=== PATIENT | male | born 1960 | race Caucasian/White ===

== ENCOUNTER → 2019-08-16 07:45 | Outpatient (CLI) | payer OTHER, SELFPAY ==
[2019-08-16 09:16] LABS: Hematocrit 42.9 % (41-53); Hemoglobin 14.8 g/dL (13.5-17.5); Mean Corpuscular HGB Conc 34.4 % (30-36); Mean Corpuscular Volume 90.1 fL (80-100); Platelet Count 249 X10^3/uL (150-400); Red Blood Cell Count 4.76 X10^6/uL (4.5-5.9); Red Cell Distribution Width 13.2 % (11.6-14.8); White Blood Cell Count 7.1 X10^3/uL (4.5-11.0)
[2019-08-16 09:26] LABS: Creatinine Urine Random 143.8 mg/dL
[2019-08-16 09:29] LABS: Microalbumi Creatinin Ratio Ur 6.2 ug/mg CR (<30); Microalbumin Urine Random 0.9 mg/dL (0-1.6)
[2019-08-16 09:47] LABS: Alanine Aminotransferase 31 IU/L (<50); Albumin 4.2 g/dL (3.5-5.0); Albumin Globulin Ratio 1.3 (1.0-2.8); Alkaline Phosphatase 58 U/L (38-126); Aspartate Aminotransferase 24 IU/L (17-59); BUN Creatinine Ratio 22.1 (6-22); Bilirubin Total 0.5 mg/dL (0.2-1.3); Blood Urea Nitrogen 15 mg/dL (9-20); Carbon Dioxide 24 mmol/L (22-32); Chloride 104 mmol/L (98-107); Cholesterol 168 mg/dL (140-199); Estimated Glomerular Filt Rate > 60.0 mL/min (>60); Globulin 3.2 g/dL (1.7-4.1); Glucose 102 mg/dL (70-100); HDL Cholesterol 39 mg/dL (40-60); HEMOLYSIS < 15 (0-50); LDL Cholesterol Calculated 112 mg/dL (<100); Potassium 4.5 mmol/L (3.4-5.1); Sodium 137 mmol/L (137-145); Total Protein 7.4 g/dL (6.3-8.2); Triglycerides 85 mg/dL (35-150)
== END ==
PROVIDERS: PCP Nurse Practitioner Family; Referring Provider Nurse Practitioner Family; Visit Provider Nurse Practitioner Family
DX: Z13.6 Encounter for screening for cardiovascular disorders (principal); I10 Essential (primary) hypertension
CPT/HCPCS: 36415; 80053; 80061; 82043; 82570; 85027

== ENCOUNTER → 2022-06-06 14:43 | Outpatient (CLI) | payer OTHER, SELFPAY ==
[2022-06-06 15:11] LABS: Add Manual Diff / Slide Review NO; Basophils Absolute Auto 100 /uL (0-100); Eosinophils Absolute Auto 100 /uL (0-450); Eosinophils Percent Auto 1.3 % (2-4); Hematocrit 40.7 % (41-53); Hemoglobin 13.8 g/dL (13.5-17.5); Lymphocytes Absolute Auto 3200 /uL (1100-4500); Lymphocytes Percent Auto 34.2 % (25-40); Mean Corpuscular Volume 88.3 fL (80-100); Monocytes Absolute Auto 700 /uL (0-900); Monocytes Percent Auto 7.3 % (3-14); Neutrophils Absolute Auto 5200 /uL (1500-7000); Neutrophils Percent Auto 56.2 % (50-75); Platelet Count 268 X10^3/uL (150-400); Red Blood Cell Count 4.61 X10^6/uL (4.5-5.9); Red Cell Distribution Width 13.9 % (11.6-14.8); White Blood Cell Count 9.3 X10^3/uL (4.5-11.0)
[2022-06-06 15:14] LABS: Appearance Urine UA CLEAR; Bilirubin Urine UA NEGATIVE (NEGATIVE); Color Urine UA YELLOW; Glucose Urine UA NEGATIVE (Negative); Ketones Urine UA NEGATIVE (NEGATIVE); Leukocyte Esterase Urine UA NEGATIVE (NEGATIVE); Nitrite Urine UA NEGATIVE (Negative); Occult Blood Urine UA 1+ (Negative); Protein Urine UA NEGATIVE (Negative); Urobilinogen Urine UA 0.2 E.U./dL (0.2); pH Urine UA 5.5 (4.5-8.0)
[2022-06-06 15:30] LABS: Bacteria Urine None Seen; Culture Indicated Urine Cult Not Indicated; RBC Urine 0-1/HPF (0-5/HPF); Squamous Epithelial Cell Urine None Seen (0-5/HPF); WBC Urine None Seen (0-5/HPF)
[2022-06-06 16:47] LABS: BUN Creatinine Ratio 23.7 (6-22); Blood Urea Nitrogen 18 mg/dL (9-20); Calcium 8.9 mg/dL (8.4-10.2); Carbon Dioxide 24 mmol/L (22-32); Chloride 102 mmol/L (98-107); Estimated Glomerular Filt Rate > 60 mL/min (>60); Glucose 88 mg/dL (70-100); HEMOLYSIS < 15 (0-50); Potassium 4.1 mmol/L (3.4-5.1); Sodium 136 mmol/L (137-145)
[2022-06-07 07:22] LABS: Labcorp Hemoglobin (Hb) A1c 5.5 % (4.8-5.6)
== END ==
PROVIDERS: PCP Student in an Organized Health Care Education/Training Program; Referring Provider Orthopaedic Surgery; Visit Provider Orthopaedic Surgery
DX: Z01.818 Encounter for other preprocedural examination (principal); Z01.812 Encounter for preprocedural laboratory examination; R73.9 Hyperglycemia, unspecified; N39.0 Urinary tract infection, site not specified
CPT/HCPCS: 36415; 80048; 81001; 83036; 85025; 93005

== ENCOUNTER 2022-06-24 10:28 | Day surgery (SDC) | payer OTHER, SELFPAY ==
[2022-06-24] VITALS (17 sets, daily range): BP systolic 90–145; BP diastolic 49–92; PULSE 70–85; RESP 10–20; TEMP 36.1–36.4; O2SAT 94–100; BMI 35.9
--- NOTE | 2022-06-24 | DI.RAD.S_ITS ---
PROCEDURE: XR HIP W PEL IF DONE LT 2V INDICATIONS: total left hip TECHNIQUE: AP pelvis and lateral view of the left hip acquired. COMPARISON: [facility], CT, NM BONE SCAN WHOLE BODY, 02/04/2015, 12:17. [facility], CR, BILATERAL HIP 2VW, 12/04/2015, 15:31. [facility], CR, XR PELVIS WITH LATERAL HIP LEFT, 07/23/2021, 16:03. [facility], DENISHA, XR PELVIS 1-2V, 06/24/2022, 13:37. FINDINGS: Bones: Patient is status post left hip arthroplasty, with hardware components in expected positions. The hip joint appears congruent. The visualized bony structures appear intact. As has been previously present extensive sclerosis and cortical thickening along the visualized proximal right femur is again noted. Soft tissues: Overlying postoperative changes are noted. No suspicious soft tissue densities. IMPRESSION: Normal postoperative alignment after left total hip arthroplasty. Longstanding documented cortical thickening and sclerosis with severe degenerative changes at the right hip, potentially representing evidence of old trauma or possibly an unusual manifestation of quiescent/treated Paget's disease. Dictated by: John Noel M.D. on 06/24/2022 at 16:15 Approved by: John Noel M.D. on 06/24/2022 at 16:18
--- NOTE | 2022-06-24 | DI.RAD.S_ITS ---
PROCEDURE: XR PELVIS 1-2V INDICATIONS: intra op left hip TECHNIQUE: Intra-operative view of the pelvis and hip acquired. COMPARISON: None. FINDINGS: Bones: Intraoperative devices prior to placement of arthroplasty prostheses are in expected positions. No fractures or suspicious bony lesions. Soft tissues: Overlying surgical retractors are present, along with other intraoperative changes. IMPRESSION: Expected intraoperative alignment in preparation for placement of final components of left total hip arthroplasty. Dictated by: John Noel M.D. on 06/24/2022 at 15:05 Approved by: John Noel M.D. on 06/24/2022 at 15:06
[2022-06-24] MEDS: LACTATED RINGERS 1,000 ML 42 ML IV ×2 (10:56→13:50)
[2022-06-24] MEDS: ACETAMINOPHEN 325 MG TABLET 975 MG PO (11:00)
[2022-06-24 11:06] LABS: COVID19 -Nasal RAPID Negative (Negative)
[2022-06-24] MEDS: CELECOXIB 200 MG CAPSULE PO (11:07)
[2022-06-24] MEDS: VANCOMYCIN 1,000 MG/200 ML PIGGYBACK 200 MG IV (11:07)
[2022-06-24] MEDS: PREGABALIN 75 MG CAPSULE PO (11:08)
--- NOTE | 2022-06-24 11:59 | P.OP_ITS ---
Operative Date/Time/Diagnoses Date of procedure: 06/24/22 Time of procedure: 13:00 Pre-op diagnosis: Severe left hip OA. Post-op diagnosis: same Procedure & Clinicians Procedure: Left total hip arthroplasty posterior approach Same procedure as scheduled: Yes Indications: The patient has had progressively worsening left hip pain with radiographic changes consistent with arthritis. Non-operative management has failed and the patient has requested total hip replacement. The risks, benefits and alternatives to surgery were discussed with the patient prior to proceeding. Risks discussed included, but were not limited to, failure to relieve pain, leg length discrepancy, dislocation, stiffness, infection, nerve damage, deep venous thrombosis, pulmonary embolism, stroke, coma, heart attack, permanent paralysis and , as well as the potential need for eventual revision of the prosthetic. Surgeon: Romina Ma Hogshead Weigher: Monica Deras Anesthesia Type: Spinal and Sedation Operative Notes Findings: Severe left hip osteoarthritis. Adequate stability, full range of motion, adequate bone Closure Type: primary Specimen(s): none sent Prosthetic devices, grafts, tissues, transplants, or devices: Ma and nephew 58 mm R3 cup, size 11 standard offset anthology, 40 by-4 Oxinium head, neutral poly liner,one 6.5 mm screw Estimated Blood Loss (mL): 250 Blood products transfused: none Procedure in detail: The patient was seen in the pre-operative area, where the patient identified the left hip as the operative site and this was marked with my initials. The patient received pre-operative antibiotics and was taken to the operating room and placed on the operative table in the right lateral decubitus position after satisfactory anesthesia. A management expert out was performed. The left leg was prepared from the ankle to the iliac crest with ChloroPrep in the usual fashion and draped through sterile drapes. The hip was approached through an approximately 20 cm incision centered over the greater trochanter and curving gently posteriorly as it went proximally. This was carried sharply to the fascia penny, which was divided and retracted with a self retaining retractor. The trochanteric bursa was excised with care being taken to avoid the sciatic nerve, which was identified and protected throughout the case. The short external rotators were incised and the capsulomuscular flap was raised and tagged for later repair. The hip was dislocated, and a femoral neck osteotomy performed approximately 15 mm above the lesser trochanter. Retractors were placed around the femur. He had a very stiff hip which was meticulously mobilized. The canal was opened with a box cutting osteotome, followed by a T handled reamer and a lateralizing reamer. The chili pepper broach was then used, followed by sequential broaching until there was good stability of the broach in the femur. Retractors were placed to expose the acetabulum. The labrum and central soft tissues were removed. Reaming was performed initially going up in 2 mm increments, then 1 mm increments until good bite was obtained with an odd sized reamer. The cup 1 mm larger than the last reamer was then inserted using the appropriate anteversion guides. It was further stabilized with a single screw. A trial neutral liner was placed. The broach was placed in the canal. A trial head and neck were then placed and the hip relocated and checked for leg length and stability. An intraoperative film confirmed the component position and no evidence of fracture. The patient was stable in the position of sleep, of squatting, and could be put through a range of motion with 45 degrees internal rotation without dislocation. At 90 degrees flexion, internal rotation to 70? was possible before dislocation. This was felt to be satisfactory. The femoral rotational stability and axial stability was checked. I went up 1 additional stem size in order to improve femoral broach stability. He had hard bone and the broach stability was good. The appropriate components were opened, and the trials were removed. The acetabular liner was impacted into position. The final stem was then impacted into the prepared femoral canal. A brief Betadine soak was performed while trialing with head options. The hip was meticulously irrigated with normal saline. Finally the femoral head was impacted onto the stem. The acetabulum was cleared of all material and the hip relocated one final time. The capsulomuscular flap was then repaired to the greater trochanter though an awl hole using the tag sutures. The short external rotators were repaired with a nonabsorbable suture. The fascia penny was closed with Vicryl. The subcutaneous layer was closed with barbed sutures and surgical glue. An Aquacel Ag dressing was applied and the patient was taken to recovery having tolerated the procedure well. Complications: none Post-operative Condition: stable Disposition: Acute Care Plan for aftercare: The patient will be maintained on a standard total hip replacement protocol with weight bearing as tolerated and posterior hip precautions. The patient will receive Aspirin and sequential compression devices for DVT prophylaxis. The patient will be discharged home when safe for the home environment.
--- NOTE | 2022-06-24 11:59 | PM.PREOP ---
Pre-operative Note Interval Note History & Physical reviewed/Exam performed by Physician: Yes Changes to H&P: No
[2022-06-24] MEDS: CEFAZOLIN 2 GM/100 ML PREMIX 100 ML IV ×2 (12:15→20:10)
[2022-06-24] MEDS: TRANEXAMIC ACID 1,000 MG VIAL 1000 MG INJ ×2 (12:48→15:00)
[2022-06-24] MEDS: BUPIVACAINE LIPOSOME 266 MG/20 ML VIAL INJ (12:58)
[2022-06-24] MEDS: BUPIVACAINE 0.25% (PF) 30 ML, EPINEPHrine 0.15 MG INJ (12:58)
--- NOTE | 2022-06-24 13:03 | SUR.OPER ---
Lateral on padded OR bed. Gel axillary roll. Arms secured on padded armboard with pillow supporting top arm. Padded hip positioner braces x4 - anterior and posterior chest and pelvis. Additional gel pad used anterior pelvis. Gel pad under bottom leg from knee to foot and secured with tape over sheet.
[2022-06-24] MEDS: ONDANSETRON 4 MG/2 ML INJ IV (15:34)
[2022-06-24] MEDS: fentaNYL 100 MCG/2 ML INJ IV ×2 (15:51→15:57)
[2022-06-24] MEDS: OXYCODONE IR 5 MG TABLET PO (16:08)
[2022-06-24] MEDS: HYDROMORPHONE 2 MG INJ IV (16:20)
[2022-06-24] MEDS: LACTATED RINGERS 1,000 ML 100 ML IV (17:09)
--- NOTE | 2022-06-24 17:10 | SUR.PHASEI ---
Pt transferred to room 224 in bed with with 1 belongings bag and CPAP bag.
[2022-06-24] MEDS: IBUPROFEN 400 MG TABLET PO ×2 (17:11→21:00)
[2022-06-24] MEDS: ACETAMINOPHEN 325 MG TABLET 650 MG PO ×2 (17:11→23:01)
[2022-06-24] MEDS: OXYCODONE IR 10 MG TABLET PO (18:00)
[2022-06-24] MEDS: HYDROMORPHONE 0.5 MG INJ IV ×2 (18:37→20:59)
[2022-06-24] MEDS: KETOROLAC 30 MG/ML VIAL 15 MG IV (21:00)
[2022-06-24] MEDS: DOCUSATE 100 MG CAPSULE PO (21:00)
[2022-06-24] MEDS: ASPIRIN EC 81 MG TABLET PO (21:01)
[2022-06-24] MEDS: lisinopriL 20 MG TABLET PO (21:01)
[2022-06-25] MEDS: IBUPROFEN 400 MG TABLET PO ×3 (00:57→08:39)
[2022-06-25] MEDS: LACTATED RINGERS 1,000 ML 100 ML IV (01:40)
[2022-06-25] MEDS: OXYCODONE IR 10 MG TABLET PO (01:43)
[2022-06-25 01:44] VITALS: BP 116/68; PULSE 82; RESP 17; TEMP 36.8; O2SAT 95
[2022-06-25 02:53] VITALS: BP 99/48; PULSE 76; RESP 16; TEMP 36.3; O2SAT 98
[2022-06-25] MEDS: CEFAZOLIN 2 GM/100 ML PREMIX 100 ML IV (04:34)
[2022-06-25] MEDS: ACETAMINOPHEN 325 MG TABLET 650 MG PO ×2 (04:35→10:22)
[2022-06-25 04:57] LABS: Hematocrit 36.6 % (41-53); Hemoglobin 12.4 g/dL (13.5-17.5)
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
[2022-06-25] MEDS: OXYCODONE IR 5 MG TABLET PO (07:18)
[2022-06-25 07:51] VITALS: BP 124/76; PULSE 82; RESP 20; TEMP 36.5; O2SAT 97
[2022-06-25 08:08] VITALS: O2SAT 96
[2022-06-25 08:37] VITALS: BP 124/76; PULSE 90
[2022-06-25] MEDS: DOCUSATE 100 MG CAPSULE PO (08:37)
[2022-06-25] MEDS: lisinopriL 20 MG TABLET PO (08:37)
[2022-06-25] MEDS: ASPIRIN EC 81 MG TABLET PO (08:39)
[2022-06-25] MEDS: AMLODIPINE 5 MG TABLET PO (08:39)
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
--- NOTE | 2022-06-25 11:30 | PC.NURSE ---
pt has been ambulating in the room with a walker this morning; he ambulated in the kelly with PT; pt being discharged home with his daughter; verbal and written discharge instructions given to pt and he verbalized understanding; iv removed intact
== END 2022-06-25 11:32 | disposition home or self-care (01) ==
LOC: OR 10:30 → AC 10:31
PROVIDERS: PCP Student in an Organized Health Care Education/Training Program; Referring Provider Orthopaedic Surgery; Visit Provider Orthopaedic Surgery
PROC: 0SRB0JZ Replacement of Left Hip Joint with Synthetic Substitute, Open Approach (ICD-10-PCS; CPT 27130; principal; 2022-06-24 12:45)
DX: M16.12 Unilateral primary osteoarthritis, left hip (principal)
CPT/HCPCS: 27130; 36415; 72170; 73502; 85014; 85018; 87635; 94760; 94762; 97116; 97162; 97530; C1776; C9803; C9290; J0171; J0690; J1170; J1885; J2250; J2405; J2704; J3010

== ENCOUNTER → 2023-06-09 09:30 | Outpatient (CLI) | payer OTHER, SELFPAY ==
[2022-06-24 10:36] VITALS: BMI 35.9
[2023-06-09 11:28] LABS: Alanine Aminotransferase 26 IU/L (<50); Albumin 3.9 g/dL (3.5-5.0); Albumin Globulin Ratio 1.1 (1.0-2.8); Alkaline Phosphatase 65 U/L (38-126); Aspartate Aminotransferase 21 IU/L (17-59); BUN Creatinine Ratio 13.6 (6-22); Bilirubin Total 0.5 mg/dL (0.2-1.3); Blood Urea Nitrogen 11 mg/dL (9-20); Calcium 8.7 mg/dL (8.4-10.2); Carbon Dioxide 29 mmol/L (22-32); Chloride 107 mmol/L (98-107); Estimated Glomerular Filt Rate > 60 mL/min (>60); Globulin 3.5 g/dL (1.7-4.1); Glucose 92 mg/dL (80-110); HEMOLYSIS < 15 (0-50); Potassium 3.9 mmol/L (3.4-5.1); Sodium 137 mmol/L (137-145); Total Protein 7.4 g/dL (6.3-8.2)
== END ==
PROVIDERS: PCP Student in an Organized Health Care Education/Training Program; Referring Provider Nurse Practitioner Family; Visit Provider Nurse Practitioner Family
DX: U07.1 COVID-19 (principal)
CPT/HCPCS: 36415; 80053

== ENCOUNTER 2023-06-25 10:11 | Emergency (ER) | payer OTHER, SELFPAY ==
[2022-06-24 10:36] VITALS: BMI 35.9
[2023-06-25] VITALS (21 sets, daily range): BP systolic 146–177; BP diastolic 92–114; PULSE 78–93; RESP 14–20; TEMP 36.6; O2SAT 94–98; BMI 37.0
--- NOTE | 2023-06-25 10:18 | DI.RAD.S_ITS ---
PROCEDURE: XR CHEST 1V INDICATIONS: chest pain TECHNIQUE: One view of the chest was acquired. COMPARISON: [facility], CR, XR CHEST 2 VIEWS, 09/22/2021, 12:18. FINDINGS: Surgical changes and devices: None. Lungs and pleura: Lungs are clear. No pleural effusions or pneumothorax. Mediastinum: Mediastinal contours appear normal. Heart size is normal. Bones and chest wall: No suspicious bony lesions. Overlying soft tissues appear unremarkable. IMPRESSION: No acute cardiopulmonary abnormality is seen. Dictated by: Rodolfo Simpson M.D. on 06/25/2023 at 9:45 Approved by: Rodolfo Simpson M.D. on 06/25/2023 at 9:45
[2023-06-25 10:45] LABS: Add Manual Diff / Slide Review NO; Basophils Absolute Auto 100 /uL (0-100); Basophils Percent Auto 1.2 % (0-2); Eosinophils Absolute Auto 200 /uL (0-450); Eosinophils Percent Auto 2.4 % (2-4); Hematocrit 41.5 % (41-53); Lymphocytes Absolute Auto 2600 /uL (1100-4500); Lymphocytes Percent Auto 33.1 % (25-40); Mean Corpuscular HGB Conc 33.7 % (30-36); Monocytes Absolute Auto 800 /uL (0-900); Monocytes Percent Auto 9.8 % (3-14); Neutrophils Absolute Auto 4200 /uL (1500-7000); Neutrophils Percent Auto 53.5 % (50-75); Platelet Count 280 X10^3/uL (150-400); Red Blood Cell Count 4.66 X10^6/uL (4.5-5.9); Red Cell Distribution Width 13.9 % (11.6-14.8); White Blood Cell Count 7.9 X10^3/uL (4.5-11.0)
[2023-06-25 10:47] LABS: INR 0.9 (0.9-1.3); Prothrombin Time 10.5 SECONDS (9.4-12.5)
[2023-06-25 10:50] LABS: PTT Partial Thromboplastin Tim 31 SECONDS (25.1-36.5)
[2023-06-25 10:52] LABS: Alanine Aminotransferase 22 IU/L (<50); Albumin 4.3 g/dL (3.5-5.0); Albumin Globulin Ratio 1.5 (1.0-2.8); Alkaline Phosphatase 54 U/L (38-126); Aspartate Aminotransferase 19 IU/L (17-59); BUN Creatinine Ratio 19.7 (6-22); Bilirubin Total 0.5 mg/dL (0.2-1.3); Blood Urea Nitrogen 15 mg/dL (9-20); Calcium 8.7 mg/dL (8.4-10.2); Carbon Dioxide 25 mmol/L (22-32); Chloride 110 mmol/L (98-107); Creatine Kinase 84 U/L (55-170); Estimated Glomerular Filt Rate > 60 mL/min (>60); Globulin 2.8 g/dL (1.7-4.1); Glucose 94 mg/dL (80-110); HEMOLYSIS < 15 (0-50); Lipase 51 U/L (23-300); Magnesium 1.8 mg/dL (1.6-2.3); Potassium 3.9 mmol/L (3.4-5.1); Sodium 140 mmol/L (137-145); Total Protein 7.1 g/dL (6.3-8.2)
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
[2023-06-25 11:03] LABS: Troponin I < 0.012 ng/mL (0.01-0.034)
[2023-06-25 11:54] LABS: D Dimer 1222 ng/ml (<500)
--- NOTE | 2023-06-25 11:55 | PC.NURSE ---
Pt took ASA before coming to ED.
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
[2023-06-25 13:00] LABS: Troponin I < 0.012 ng/mL (0.01-0.034)
== END 2023-06-25 14:07 | disposition home or self-care (01) ==
PROVIDERS: Emergency Provider Emergency Medicine; PCP Student in an Organized Health Care Education/Training Program
DX: R07.89 Other chest pain (principal)
CPT/HCPCS: 36415; 71045; 71275; 80053; 82550; 83690; 83735; 84484; 85025; 85379; 85610; 85730; 93005; 99284; Q9967

== ENCOUNTER → 2023-07-12 08:56 | Outpatient (CLI) | payer OTHER, SELFPAY ==
[2022-06-24 10:36] VITALS: BMI 35.9
--- NOTE | 2023-07-12 08:58 | DI.RAD.S_ITS ---
PROCEDURE: XR ANKLE RT MIN 3V INDICATIONS: Right ankle pain TECHNIQUE: 3 views of the ankle were acquired. COMPARISON: None. FINDINGS: Bones: No fractures or dislocations. Ankle mortise is normally aligned. No suspicious bony lesions. Soft tissues: Moderate tibiotalar joint effusion. Achilles tendon appears normal. IMPRESSION: No acute bony abnormality. Moderate tibiotalar joint effusion. Dictated by: Reza Doss M.D. on 07/12/2023 at 11:06 Approved by: Reza Doss M.D. on 07/12/2023 at 11:14
[2023-07-12 09:55] LABS: Hemoglobin A1C% w Est Avg Glu 5.5 % (4.0-6.0)
[2023-07-12 10:08] LABS: Cholesterol 158 mg/dL (140-199); HDL Cholesterol 43 mg/dL (40-60); LDL Cholesterol Calculated 101 mg/dL (<100); Triglycerides 69 mg/dL (35-150)
== END ==
PROVIDERS: PCP Nurse Practitioner Family; Referring Provider Nurse Practitioner Family; Visit Provider Nurse Practitioner Family
DX: M25.571 Pain in right ankle and joints of right foot (principal); I10 Essential (primary) hypertension; E66.9 Obesity, unspecified; M25.471 Effusion, right ankle
CPT/HCPCS: 36415; 73610; 80061; 83036

== ENCOUNTER → 2023-10-22 09:22 | Outpatient (CLI) | payer OTHER, SELFPAY ==
[2022-06-24 10:36] VITALS: BMI 35.9
== END ==
PROVIDERS: PCP Nurse Practitioner Family; Visit Provider Registered Nurse
DX: J02.9 Acute pharyngitis, unspecified (principal)
CPT/HCPCS: 87070

== ENCOUNTER → 2025-02-03 09:11 | Outpatient (CLI) | payer OTHER, SELFPAY ==
[2022-06-24 10:36] VITALS: BMI 35.9
[2025-02-03 10:22] LABS: Add Manual Diff / Slide Review NO; Hematocrit 41.2 % (41-53); Hemoglobin 14.1 g/dL (13.5-17.5); Lymphocytes Absolute Auto 2200 /uL (1100-4500); Mean Corpuscular HGB Conc 34.1 % (30-36); Mean Corpuscular Hemoglobin 30.4 PG (26-34); Mean Corpuscular Volume 89.0 fL (80-100); Platelet Count 242 X10^3/uL (150-400)
[2025-02-03 11:03] LABS: Alanine Aminotransferase 23 IU/L (<50); Albumin 4.0 g/dL (3.5-5.0); Albumin Globulin Ratio 1.3 (1.0-2.8); Alkaline Phosphatase 58 U/L (38-126); Blood Urea Nitrogen 14 mg/dL (9-20); Calcium 8.8 mg/dL (8.4-10.2); Carbon Dioxide 26 mmol/L (22-32); Chloride 106 mmol/L (98-107); Cholesterol 150 mg/dL (140-199); Estimated Glomerular Filt Rate > 60 mL/min (>60); Globulin 3.0 g/dL (1.7-4.1); Glucose 94 mg/dL (70-99); HDL Cholesterol 43 mg/dL (40-60); HEMOLYSIS < 15 (0-50); Potassium 4.4 mmol/L (3.4-5.1); Sodium 140 mmol/L (137-145); Total Protein 7.0 g/dL (6.3-8.2); Triglycerides 53 mg/dL (35-150)
== END ==
PROVIDERS: PCP Nurse Practitioner Family; Referring Provider Nurse Practitioner Family; Visit Provider Nurse Practitioner Family
DX: E66.9 Obesity, unspecified (principal); E78.2 Mixed hyperlipidemia; I10 Essential (primary) hypertension; G47.33 Obstructive sleep apnea (adult) (pediatric); G47.00 Insomnia, unspecified
CPT/HCPCS: 36415; 80053; 80061; 85025